=== PATIENT | male | born 1985 | race Two or more races ===

== ENCOUNTER 2023-01-24 21:04 | Emergency (ER) | payer OTHER ==
[~2023-01-24] VITALS: Ht 175.3 cm; Wt 58.1 kg
== END 2023-01-24 22:43 | disposition home or self-care (01) ==
LOC: ER 21:04
DX: S01.81XA Laceration without foreign body of other part of head, initial encounter (principal); W18.11XA Fall from or off toilet without subsequent striking against object, initial encounter; Y93.89 Activity, other specified; Y92.091 Bathroom in other non-institutional residence as the place of occurrence of the external cause; Y99.8 Other external cause status

== ENCOUNTER 2024-12-05 20:22 | Emergency (ER) | payer OTHER ==
[~2024-12-05] VITALS: Ht 167.6 cm; Wt 68.0 kg
[2024-12-05] MEDS ORDERED: ZESTRIL5 MG (20:38)
[2024-12-06] MEDS ORDERED: KETOROLAC TROMETHAMINE 10 MG TABLET PO STA (00:37)
[2024-12-06] MEDS ORDERED: KETOROLAC TROMETHAMINE 10 MG TABLET PO ONE (00:42)
[2024-12-06 01:04] LABS: PH,URINE 7.5 (5.0-8.0); URINE APPEARANCE Clear; URINE BILIRRUBIN Negative (NEGATIVE); URINE BLOOD Negative; URINE COLOR Yellow; URINE KETONE Negative (NEGATIVE); URINE LEUKOCYTE Negative; URINE NITRATE Negative; URINE PROTEIN Trace (NEGATIVE)
[2024-12-06 01:07] LABS: URINE BACTERIA 17.1 uL (0.0-1933); URINE RBC 22.6 uL (0.0-20.8); URINE WBC 12.3 uL (0.0-23.2)
[2024-12-06 01:12] LABS: URINE CAST 0.88 uL (0.0-1.40); URINE GLUCOSE 100 MG/DL (NEGATIVE)
[2024-12-06 01:17] LABS: ALBUMIN 3.3 gm/dL (3.4-5.0); BILIRUBIN TOTAL 0.23 mg/dL (0.3-1.2); CALCIUM 8.8 mg/dL (8.5-10.1); CREATININE SERUM 1.05 mg/dL (0.70-1.30); GFR 78.63; GLOBULINA 3.9 G/DL (2.4-3.5); POTASSIUM 3.4 mEq/L (3.5-5.1); TOTAL PROTEIN 7.2 gm/dL (6.4-8.2)
== END 2024-12-06 03:49 ==
LOC: ER 20:23
PROVIDERS: General Practice
DX: R60.0 Localized edema (principal); I10 Essential (primary) hypertension